=== PATIENT | male | born 1980 | race Caucasian/White ===

== ENCOUNTER 2016-07-28 10:57 | Inpatient (IN) | payer MEDICAID, OTHER ==
--- NOTE | 2016-07-28 11:53 | ED ---
Psych HPI - General Chief Complaint: Psychiatric Symptoms Stated Complaint: Kidney pain Time Seen by Provider: 07/28/16 11:35 Source: patient, RN notes reviewed Mode of arrival: ambulatory - History of Present Illness Initial Comments: Is a 35-year-old male who apparently was brought to the emergency department and states he does not know how he got here. She does not be able sleep for the last several days he does admit to taking for 2 mg Xanax this morning also to 800 mg Motrin. He has been apparently diagnosis and kidney problems. He does state he has been having suicidal thoughts recently apparently a girlfriend in this is around the anniversary of the occurring. He states he does not drink alcohol he has no other complaints this time she is not sure how he got here. He apparently also was recently treated for kidney stones. MD Complaint: feels depressed - Related Data Home Medications Medication Instructions Recorded Confirmed Ergocalciferol (Vitamin D2) 50,000 unit PO Q28D 04/14/16 07/28/16 [Drisdol] Ibuprofen [Motrin] 400 - 800 mg PO Q6HR PRN 07/28/16 07/28/16 Lisinopril [Zestril] 40 mg PO DAILY 07/28/16 07/28/16 amLODIPine BESYLATE [Norvasc] 10 mg PO DAILY 07/28/16 07/28/16 Previous Rx's Medication Instructions Recorded Acetaminophen Tab [Tylenol] 650 mg PO Q6HR PRN #0 tab 04/16/16 FLUoxetine HCL [PROzac] 20 mg PO DAILY #30 cap 04/16/16 Allergies Allergy/AdvReac Type Severity Reaction Status Date / Time No Known Allergies Allergy Verified 07/28/16 11:24 Review of Systems ROS Statement: Those systems with pertinent positive or pertinent negative responses have been documented in the HPI. ROS Other: All systems not noted in ROS Statement are negative. Past Medical History Past Medical History: Hypertension, Seizure Disorder Additional Past Medical History / Comment(s): childhood seizures, chronic pain to back. insomnia History of Any Multi-Drug Resistant Organisms: None Reported Past Surgical History: No Surgical Hx Reported Past Psychological History: Anxiety, Depression, PTSD Smoking Status: Current every day smoker Past Alcohol Use History: None Reported Past Drug Use History: Marijuana, Opiates, Prescription Drug Abuse - Past Family History Mother Family Medical History: No Reported History Father Additional Family Medical History / Comment(s): etoh General Exam - General Exam Comments Initial Comments: This is a well-developed well-nourished awake alert oriented times 3 male Limitations: no limitations General appearance: alert, anxious Head exam: Present: atraumatic, normocephalic, normal inspection Eye exam: Present: normal appearance, PERRL, EOMI. Absent: scleral icterus, conjunctival injection, periorbital swelling ENT exam: Present: normal exam, mucous membranes moist Neck exam: Present: normal inspection. Absent: tenderness, meningismus, lymphadenopathy Respiratory exam: Present: normal lung sounds bilaterally. Absent: respiratory distress, wheezes, rales, rhonchi, stridor Cardiovascular Exam: Present: regular rate, normal rhythm, normal heart sounds. Absent: systolic murmur, diastolic murmur, rubs, gallop, clicks GI/Abdominal exam: Present: soft, normal bowel sounds. Absent: distended, tenderness, guarding, rebound, rigid Extremities exam: Present: normal inspection, full ROM, normal capillary refill. Absent: tenderness, pedal edema, joint swelling, calf tenderness Back exam: Present: normal inspection Neurological exam: Present: alert, oriented X3, CN II-XII intact Psychiatric exam: Present: normal affect, normal mood Skin exam: Present: warm, dry, intact, normal color. Absent: rash Course Vital Signs 07/28/16 11:15 Temperature 100.1 F H Pulse Rate 103 H Respiratory 16 Rate Blood Pressure 141/76 O2 Sat by Pulse 95 Oximetry Medical Decision Making - Medical Decision Making The patient was evaluated and will be admitted for inpatient treatment. - Lab Data Result diagrams: 07/28/16 11:56 07/28/16 11:56 Lab Results 07/28/16 07/28/16 07/28/16 Range/Units 11:32 11:56 11:56 WBC 7.5 (3.8-10.6) k/uL RBC 5.07 (4.30-5.90) m/uL Hgb 14.4 (13.0-17.5) gm/dL Hct 42.5 (39.0-53.0) % MCV 83.9 (80.0-100.0) fL MCH 28.5 (25.0-35.0) pg MCHC 33.9 (31.0-37.0) g/dL RDW 13.6 (11.5-15.5) % Plt Count 308 (150-450) k/uL Neutrophils % 69 % Lymphocytes % 20 % Monocytes % 5 % Eosinophils % 1 % Basophils % 0 % Neutrophils # 5.2 (1.3-7.7) k/uL Lymphocytes # 1.5 (1.0-4.8) k/uL Monocytes # 0.4 (0-1.0) k/uL Eosinophils # 0.1 (0-0.7) k/uL Basophils # 0.0 (0-0.2) k/uL Sodium 140 (137-145) mmol/L Potassium 4.2 (3.5-5.1) mmol/L Chloride 105 (98-107) mmol/L Carbon Dioxide 24 (22-30) mmol/L Anion Gap 11 mmol/L BUN 12 (9-20) mg/dL Creatinine 0.82 (0.66-1.25) mg/dL Est GFR (MDRD) Af Amer >60 (>60 ml/min/1.73 sqM) Est GFR (MDRD) Non-Af >60 (>60 ml/min/1.73 sqM) Glucose 106 H (74-99) mg/dL Calcium 9.3 (8.4-10.2) mg/dL Total Bilirubin 1.9 H (0.2-1.3) mg/dL AST 31 (17-59) U/L ALT 35 (21-72) U/L Alkaline Phosphatase 95 (38-126) U/L Total Protein 7.2 (6.3-8.2) g/dL Albumin 4.1 (3.5-5.0) g/dL Urine Color Yellow Urine Appearance Clear (Clear) Urine pH 6.5 (5.0-8.0) Ur Specific [place] 1.032 (1.001-1.035) Urine Protein 1+ H (Negative) Urine Glucose (UA) Negative (Negative) Urine Ketones Trace H (Negative) Urine Blood Negative (Negative) Urine Nitrate Negative (Negative) Urine Bilirubin Negative (Negative) Urine Urobilinogen 4.0 (<2.0) mg/dL Ur Leukocyte Esterase Trace H (Negative) Urine RBC <1 (0-5) /hpf Urine WBC 1 (0-5) /hpf Ur Squamous Epith Cells <1 (0-4) /hpf Urine Mucus Rare H (None) /hpf Salicylates <1.0 mg/dL Urine Opiates Screen Detected H (NotDetected) Ur Oxycodone Screen Not Detected (NotDetected) Urine Methadone Screen Not Detected (NotDetected) Ur Propoxyphene Screen Not Detected (NotDetected) Acetaminophen <10.0 ug/mL Ur Barbiturates Screen Detected H (NotDetected) U Tricyclic Antidepress Detected H (NotDetected) Ur Phencyclidine Scrn Not Detected (NotDetected) Ur Amphetamines Screen Detected H (NotDetected) U Methamphetamines Scrn Not Detected (NotDetected) U Benzodiazepines Scrn Detected H (NotDetected) Urine Cocaine Screen Not Detected (NotDetected) U Marijuana (THC) Screen Detected H (NotDetected) Disposition Clinical Impression: Depression, Suicidal ideation Disposition: TRANSFER TO PSYCH HOSP/UNIT Condition: Stable
[2016-07-28 12:10] LABS: Basophils % (A) 0 %; CH 28.3; CHCM 33.9; Eosinophils # (A) 0.1 k/uL (0-0.7); Eosinophils % (A) 1 %; HCT 42.5 % (39.0-53.0); HDW 2.73; HGB 14.4 gm/dL (13.0-17.5); Luc # (Auto) 0.26; Luc % (Auto) 3; Lymphocytes # (A) 1.5 k/uL (1.0-4.8); Lymphocytes % (A) 20 %; MCH 28.5 pg (25.0-35.0); MCHC 33.9 g/dL (31.0-37.0); MCV 83.9 fL (80.0-100.0); Mean Platelet Volume 6.8; Monocytes # (A) 0.4 k/uL (0-1.0); Monocytes % (A) 5 %; Neutrophils # (A) 5.2 k/uL (1.3-7.7); Neutrophils % (A) 69 %; RBC 5.07 m/uL (4.30-5.90); RDW 13.6 % (11.5-15.5); WBC 7.5 k/uL (3.8-10.6); WBC (Perox) 7.47
[2016-07-28 12:16] LABS: Appearance,Urine Clear (Clear); Bilirubin,Urine Negative (Negative); Glucose,Urine (UA) Negative (Negative); Ketones,Urine Trace (Negative); Leukocyte Esterase,Urine Trace (Negative); Mucus,Urine Rare /hpf; Nitrite,Urine Negative (Negative); PH, Urine 6.5 (5.0-8.0); Particle Count 1558; Protein,Urine 1+ (Negative); RBC,Urine <1 /hpf (0-5); Specific Gravity,Urine 1.032 (1.001-1.035); Squamous Epithelial Cell,Urine <1 /hpf (0-4); UA Billing (MACRO vs. MICRO) MICRO; WBC,Urine 1 /hpf (0-5)
[2016-07-28 12:26] LABS: ALT 35 U/L (21-72); AST 31 U/L (17-59); Acetaminophen <10.0 ug/mL; Alkaline Phosphatase 95 U/L (38-126); Anion Gap 11 mmol/L; Blood Urea Nitrogen 12 mg/dL (9-20); Calcium 9.3 mg/dL (8.4-10.2); Carbon Dioxide 24 mmol/L (22-30); Chloride 105 mmol/L (98-107); Glucose 106 mg/dL (74-99); Non-African American GFR(MDRD) >60 (>60 ml/min/1.73 sqM); Potassium 4.2 mmol/L (3.5-5.1); Salicylate <1.0 mg/dL; Sodium 140 mmol/L (137-145); Total Bilirubin 1.9 mg/dL (0.2-1.3); Total Protein 7.2 g/dL (6.3-8.2)
[2016-07-28] MEDS ORDERED: NICOTINE 14MG/24HR PATCH TRANSDERM STA (13:05)
[2016-07-28 16:30] VITALS: TEMP 98.2
[2016-07-28] MEDS ORDERED: ZIPRASIDONE 20 MG VIAL IM PRN (16:35)
[2016-07-28] MEDS ORDERED: ACETAMINOPHEN TAB 325 MG TAB PO PRN (16:35)
[2016-07-28] MEDS ORDERED: MAGNESIUM HYDROXIDE 2,400 MG/10 ML CUP PO PRN (16:35)
[2016-07-28] MEDS ORDERED: MAG HYDROX/AL HYDROX/SIMETH 30 ML CUP PO PRN (16:35)
[2016-07-28] MEDS ORDERED: LORazepam 2 MG/ML SYRINGE IM PRN (16:39)
[2016-07-28] MEDS ORDERED: ERGOCALCIFEROL 50,000 UNIT CAP PO SCH (16:45)
[2016-07-28] MEDS ORDERED: NICOTINE 14MG/24HR PATCH TRANSDERM SCH (17:00)
[2016-07-28] MEDS: LORazepam 1 MG TAB PO PRN (17:37)
[2016-07-28] MEDS: IBUPROFEN 400 MG TAB PO PRN (17:51)
[2016-07-28] MEDS ORDERED: traZODone HCL 100 MG TAB PO SCH (21:15)
[2016-07-28] MEDS ORDERED: WATER FOR INJECTION, STERILE 10 ML IV ONE (22:37)
[2016-07-29] MEDS: IBUPROFEN 400 MG TAB PO PRN (08:22)
[2016-07-29] MEDS: LORazepam 1 MG TAB PO PRN (08:22)
[2016-07-29] MEDS ORDERED: LISINOPRIL 20 MG TAB PO SCH (09:00)
[2016-07-29] MEDS ORDERED: FLUoxetine HCL 20 MG CAP PO SCH (09:00)
[2016-07-29] MEDS ORDERED: amLODIPine 10 MG TAB PO SCH (09:00)
[2016-07-29] MEDS ORDERED: NICOTINE 14MG/24HR PATCH TRANSDERM SCH (09:00)
[2016-07-29] MEDS ORDERED: BENZOCAIN/BENZALKONM ORAL GEL 12 GM TUBE MM PRN (11:14)
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
--- NOTE | 2016-07-29 11:59 | P.DS ---
Providers Date of admission: 07/28/16 15:45 Attending physician: Rajan Sebastian MD Consults: 07/28/16 16:35 Consult Physician Routine Consulting Provider: Quirino Shine Consult Reason/Comments: Follow up H & P Do you want consulting provider notified?: Yes Primary care physician: Quirino Shine - Discharge Diagnosis(es) (1) Insomnia due to drug Current Visit: Yes Status: Acute Priority: Medium (2) Opioid use disorder, severe, dependence Current Visit: Yes Status: Chronic Priority: Medium (3) Sedative, hypnotic or anxiolytic abuse, continuous Current Visit: Yes Status: Chronic (4) Amphetamine and psychostimulant abuse, binge pattern Current Visit: Yes Status: Acute Priority: High (5) Cannabis abuse Current Visit: Yes Status: Chronic Priority: Medium (6) Substance induced mood disorder Current Visit: Yes Status: Acute Priority: Medium Hospital Course: Mr. Patrick a 35-year-old single male presented to unit voluntarily with complaints of insomnia and depression. He complained that he had been sleeping for "4 for 5 days." He "lays down" and "tosses and turns". During the daytime he felt as though he were "in a dream". On Wednesday prior to admission he states he took several Tylenol and Tylenol PM tablets in an attempt to fall asleep. He estimates that he may have taken up to 20-30 Tylenol and Tylenol PM tablets. He attributed the change in his mental state to his physician refusing to continue prescriptions for Xanax and Narco and the anniversary of the of his fiana rosa. Apparently his physician required urine drug screens and refused to continue prescriptions of Xanax and Narco when his drug screen was positive for cannabinoids. He stated that he has been using several drugs including Xanax, marijuana, morphine, hydrocodone , Ritalin and Adderall. In addition he buys Suboxone to control his use of heroin. He finds that 4 mg of Suboxone per day controls his craving for heroin. His ever on July 21 "about 4 years ago" from an intentional overdose of Xanax. He stated that he woke in the morning and found her . There was an empty bottle of Xanax next to her. She had a history of mental health and substance use problems including multiple psychiatric hospitalizations. Every July, since her , he experiences increased depression with the anniversary of her . He stated that he feels much better since he slept "8 hours" last night. He requested to be discharge and stated he has scheduled an appointment at [facility] on 07/30/2016 for outpatient mental health treatment. He denied having thoughts of or suicide. He denied feeling depressed or having significant symptoms of anxiety. He denied psychotic symptoms such as auditory or visual hallucinations, ideas reference, thought insertion, thought broadcasting or thought control. He denied prior psychiatric hospitalizations. He had met with a therapist at [facility], [place], but stopped when he started his current job. 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 He has met with the therapist at [facility] for "a couple years." He has used most drugs of abuse including marijuana, opioid pain medications, cocaine, crack, methamphetamine, heroin and sedative/hypnotics. His drugs of choice are marijuana and heroin. He began using opiate pain medications when he was approximately 30 years old. He started using heroin when "the pills became too expensive" about one year later. He injected heroin for 3-4 months then entered his first treatment program at [facility]. He last used heroin when he was last released from [facility] about one year ago. His urine drug screen on admission was positive for opiates, barbiturates, tricyclics, amphetamines, benzodiazepines and marijuana. The results of urine drug screen is consistent with his history of using oral opiate pain medications, amphetamines, benzodiazepines and marijuana. He described a social pattern of alcohol use. He has been in 3 substance abuse treatment programs all at [facility]. His last was for detox only in January 2015. As mentioned above he controls his heroin use by buying Suboxone and taking approximate 4 mg per day. He stated that that a certified provider will not prescribe him Suboxone because he continues to use marijuana and his urine drug screens are always positive. We admitted him to the psychiatric unit under care of this telegraphic typewriter repairer. We provided a biopsychosocial assessment. We restarted his outpatient medications including fluoxetine 20 mg daily, Zestril 40 mg daily, Norvasc 10 mg daily and vitamin D 2 5000 units every 28 days. We prescribed trazodone 100 mg at bedtime for sleep. On the morning after admission he reported restful sleep "the first time in a week". He denied feeling depressed or having thoughts of suicide. He understands his need for substance abuse and mental health treatment and arranged for an intake appointment at [facility] prior to his admission. He requested to be discharged to keep his outpatient mental health appointment and to return to work. Patient Condition at Discharge: Stable Plan - Discharge Summary New Discharge Prescriptions: Nicotine 14Mg/24Hr Patch [Habitrol] 1 patch TRANSDERM DAILY #14 patch traZODone HCL [Desyrel] 100 mg PO HS 30 Days Discharge Medication List Ergocalciferol (Vitamin D2) [Drisdol] 50,000 unit PO Q28D 04/14/16 [History] Acetaminophen Tab [Tylenol] 650 mg PO Q6HR PRN #0 tab 04/16/16 [Rx] FLUoxetine HCL [PROzac] 20 mg PO DAILY #30 cap 04/16/16 [Rx] Ibuprofen [Motrin] 400 - 800 mg PO Q6HR PRN 07/28/16 [History] Lisinopril [Zestril] 40 mg PO DAILY 07/28/16 [History] amLODIPine BESYLATE [Norvasc] 10 mg PO DAILY 07/28/16 [History] Nicotine 14Mg/24Hr Patch [Habitrol] 1 patch TRANSDERM DAILY #14 patch 07/29/16 [ Rx] traZODone HCL [Desyrel] 100 mg PO HS 30 Days 07/29/16 [Rx] Follow up Appointment(s)/Referral(s): [facility] [Outside] - 07/30/16 2:00 pm (Quirino Alas MD [Primary Care Provider] - 1-2 days Discharge Disposition: HOME SELF-CARE
[2016-07-29 12:52] VITALS: BP 143/90; PULSE 75; RESP 18; BMI 34.4
--- NOTE | 2016-07-29 19:09 | CONS ---
DATE OF CONSULTATION: CHIEF COMPLAINT: Major depression. HISTORY OF PRESENT ILLNESS: This 35-year-old white male was admitted with exacerbation of depression. He is brought in for acute management. REVIEW OF SYSTEMS: He has had no headaches, chest pain, shortness of breath, abdominal pain, melena, hematochezia, jaundice, hematemesis, renal disease, diabetes, etc. Past medical history, family history, and personal and social histories are unremarkable or noncontributory otherwise. ALLERGIES: He is NOT ALLERGIC TO ANY MEDICATION. It is not clear what medications he has been taking, if any. He does smoke. PHYSICAL EXAMINATION: Blood pressure is 112/72, pulse 68, respiratory rate 16. He is afebrile. In general he appeared to be well-developed, well-nourished, in no acute distress. He was somewhat disheveled. Head, ears, eyes, nose, mouth and throat were normal. Neck veins were not distended. Chest is clear. Cardiac exam is normal. Abdomen is soft, nontender. Extremities are normal. IMPRESSION: 1. Major depression. 2. Nicotine abuse. RECOMMENDATIONS: None.
== END 2016-07-29 14:25 | disposition home or self-care (01) | DRG 881 ==
LOC: EC 10:57 → 3MHU 15:45
PROVIDERS: ADMIT Psychiatry & Neurology Psychiatry; ATTEND Psychiatry & Neurology Psychiatry
DX: F32.9 Major depressive disorder, single episode, unspecified (principal); R45.851 Suicidal ideations; F11.20 Opioid dependence, uncomplicated; F19.182 Other psychoactive substance abuse with psychoactive substance-induced sleep disorder; G40.909 Epilepsy, unspecified, not intractable, without status epilepticus; I10 Essential (primary) hypertension; F13.10 Sedative, hypnotic or anxiolytic abuse, uncomplicated; F12.10 Cannabis abuse, uncomplicated; F17.200 Nicotine dependence, unspecified, uncomplicated; F43.10 Post-traumatic stress disorder, unspecified; F41.9 Anxiety disorder, unspecified; G89.29 Other chronic pain; M54.9 Dorsalgia, unspecified; Z79.899 Other long term (current) drug therapy; Z62.810 Personal history of physical and sexual abuse in childhood; Z62.811 Personal history of psychological abuse in childhood
CPT/HCPCS: 36415; 80053; 80306; 81001; 82075; 83520; 84443; 85025; 99285

== ENCOUNTER 2016-10-04 11:20 | Emergency (ER) | payer OTHER ==
[2016-10-04] MEDS ORDERED: MORPHINE SULFATE 4 MG/ML SYRINGE IV STA (12:17)
[2016-10-04] MEDS ORDERED: SODIUM CHLORIDE 0.9% 1,000 ML IV STA (12:17)
--- NOTE | 2016-10-04 12:26 | ED ---
General Adult HPI - General Chief complaint: Back Pain/Injury Stated complaint: kidney stone Time Seen by Provider: 10/04/16 12:17 Source: patient, RN notes reviewed, old records reviewed Mode of arrival: ambulatory Limitations: no limitations - History of Present Illness Initial comments: This is a 36-year-old male with urinary for evaluation retrace patient presents for evaluation of kidney pain. Patient states he has severe kidney pain both sides. History of kidney failure unknown, dehydration, history of kidney stones. Patient has not decreased urination, increased worsening color of his urine. No spell. No fevers. No abdominal pain. No nausea or vomiting. No modifying factors or symptoms - Related Data Home Medications Medication Instructions Recorded Confirmed No Known Home Medications [No 10/03/16 10/04/16 Known Home Medications] Allergies Allergy/AdvReac Type Severity Reaction Status Date / Time No Known Allergies Allergy Verified 10/04/16 12:57 Review of Systems ROS Statement: Those systems with pertinent positive or pertinent negative responses have been documented in the HPI. ROS Other: All systems not noted in ROS Statement are negative. Past Medical History Past Medical History: Hypertension, Seizure Disorder Additional Past Medical History / Comment(s): childhood seizures, chronic pain to back. insomnia. Kidney stones History of Any Multi-Drug Resistant Organisms: None Reported Past Surgical History: No Surgical Hx Reported Past Anesthesia/Blood Transfusion Reactions: No Reported Reaction Past Psychological History: Anxiety, Depression, PTSD Smoking Status: Current every day smoker Past Alcohol Use History: None Reported Past Drug Use History: Marijuana, Opiates - Past Family History Mother Family Medical History: No Reported History Father Additional Family Medical History / Comment(s): etoh General Exam Limitations: no limitations General appearance: alert, in no apparent distress Head exam: Present: atraumatic, normocephalic, normal inspection Eye exam: Present: normal appearance, PERRL, EOMI. Absent: scleral icterus, conjunctival injection, periorbital swelling ENT exam: Present: normal exam, mucous membranes moist Neck exam: Present: normal inspection. Absent: tenderness, meningismus, lymphadenopathy Respiratory exam: Present: normal lung sounds bilaterally. Absent: respiratory distress, wheezes, rales, rhonchi, stridor Cardiovascular Exam: Present: regular rate, normal rhythm, normal heart sounds. Absent: systolic murmur, diastolic murmur, rubs, gallop, clicks GI/Abdominal exam: Present: soft, normal bowel sounds. Absent: distended, tenderness, guarding, rebound, rigid Extremities exam: Present: normal inspection, full ROM, normal capillary refill. Absent: tenderness, pedal edema, joint swelling, calf tenderness Back exam: Present: normal inspection Neurological exam: Present: alert, oriented X3, CN II-XII intact Psychiatric exam: Present: normal affect, normal mood Skin exam: Present: warm, dry, intact, normal color. Absent: rash Course Vital Signs 10/04/16 10/04/16 11:25 13:21 Temperature 98.1 F Pulse Rate 72 67 Respiratory 20 18 Rate Blood Pressure 133/86 132/84 O2 Sat by Pulse 98 96 Oximetry - Reevaluation(s) Reevaluation #1: 10/04/16 14:42 Pains controlled at this time Medical Decision Making - Medical Decision Making 36 male to the the ER for evaluation of his vision was essentially for evaluation of back pain. Patient has severe back and flank pain. At this time pain is improved, lab work is normal the cat scan, patient can be discharged home - Lab Data Result diagrams: 10/04/16 13:19 10/04/16 13:19 Lab Results 10/04/16 10/04/16 10/04/16 Range/Units 13:19 13:19 13:19 WBC 7.3 (3.8-10.6) k/uL RBC 5.54 (4.30-5.90) m/uL Hgb 15.3 (13.0-17.5) gm/dL Hct 47.1 (39.0-53.0) % MCV 85.0 (80.0-100.0) fL MCH 27.7 (25.0-35.0) pg MCHC 32.6 (31.0-37.0) g/dL RDW 13.8 (11.5-15.5) % Plt Count 267 (150-450) k/uL Neutrophils % 60 % Lymphocytes % 29 % Monocytes % 5 % Eosinophils % 2 % Basophils % 0 % Neutrophils # 4.4 (1.3-7.7) k/uL Lymphocytes # 2.1 (1.0-4.8) k/uL Monocytes # 0.4 (0-1.0) k/uL Eosinophils # 0.2 (0-0.7) k/uL Basophils # 0.0 (0-0.2) k/uL Sodium 141 (137-145) mmol/L Potassium 4.3 (3.5-5.1) mmol/L Chloride 107 (98-107) mmol/L Carbon Dioxide 26 (22-30) mmol/L Anion Gap 8 mmol/L BUN 17 (9-20) mg/dL Creatinine 0.82 (0.66-1.25) mg/dL Est GFR (MDRD) Af Amer >60 (>60 ml/min/1.73 sqM) Est GFR (MDRD) Non-Af >60 (>60 ml/min/1.73 sqM) Glucose 93 (74-99) mg/dL Calcium 9.0 (8.4-10.2) mg/dL Phosphorus 2.8 (2.5-4.5) mg/dL Magnesium 1.8 (1.6-2.3) mg/dL Total Bilirubin 0.6 (0.2-1.3) mg/dL AST 32 (17-59) U/L ALT 38 (21-72) U/L Alkaline Phosphatase 72 (38-126) U/L Total Protein 7.1 (6.3-8.2) g/dL Albumin 4.3 (3.5-5.0) g/dL Lipase 258 (23-300) U/L Urine Color Yellow Urine Appearance Clear (Clear) Urine pH 6.0 (5.0-8.0) Ur Specific Randolph 1.019 (1.001-1.035) Urine Protein Negative (Negative) Urine Glucose (UA) Negative (Negative) Urine Ketones Negative (Negative) Urine Blood Negative (Negative) Urine Nitrite Negative (Negative) Urine Bilirubin Negative (Negative) Urine Urobilinogen <2.0 (<2.0) mg/dL Ur Leukocyte Esterase Negative (Negative) - Radiology Data Radiology results: report reviewed (CT of abdomen and pelvis is negative for acute disease), image reviewed Disposition Clinical Impression: Mid back pain, Thoracic back pain Disposition: HOME SELF-CARE Condition: Good Instructions: Acute Low Back Pain (ED), Chronic Back Pain (ED) Referrals: None,Stated [Primary Care Provider] - 1-2 days
[2016-10-04 14:15] LABS: Basophils % (A) 0 %; CH 28.5; CHCM 33.6; Eosinophils # (A) 0.2 k/uL (0-0.7); Eosinophils % (A) 2 %; HCT 47.1 % (39.0-53.0); HDW 2.44; HGB 15.3 gm/dL (13.0-17.5); Luc # (Auto) 0.21; Luc % (Auto) 3; Lymphocytes # (A) 2.1 k/uL (1.0-4.8); Lymphocytes % (A) 29 %; MCH 27.7 pg (25.0-35.0); MCHC 32.6 g/dL (31.0-37.0); Mean Platelet Volume 6.6; Monocytes # (A) 0.4 k/uL (0-1.0); Monocytes % (A) 5 %; Neutrophils # (A) 4.4 k/uL (1.3-7.7); Neutrophils % (A) 60 %; RBC 5.54 m/uL (4.30-5.90); RDW 13.8 % (11.5-15.5); WBC 7.3 k/uL (3.8-10.6); WBC (Perox) 7.33
[2016-10-04 14:18] LABS: Appearance,Urine Clear (Clear); Bilirubin,Urine Negative (Negative); Glucose,Urine (UA) Negative (Negative); Ketones,Urine Negative (Negative); Leukocyte Esterase,Urine Negative (Negative); Nitrite,Urine Negative (Negative); Protein,Urine Negative (Negative); Specific Gravity,Urine 1.019 (1.001-1.035); UA Billing (MACRO vs. MICRO) CHEM; Urobilinogen,Urine <2.0 mg/dL (<2.0)
[2016-10-04 14:27] LABS: ALT 38 U/L (21-72); AST 32 U/L (17-59); Alkaline Phosphatase 72 U/L (38-126); Anion Gap 8 mmol/L; Blood Urea Nitrogen 17 mg/dL (9-20); Carbon Dioxide 26 mmol/L (22-30); Chloride 107 mmol/L (98-107); Glucose 93 mg/dL (74-99); Magnesium 1.8 mg/dL (1.6-2.3); Non-African American GFR(MDRD) >60 (>60 ml/min/1.73 sqM); Phosphorous 2.8 mg/dL (2.5-4.5); Potassium 4.3 mmol/L (3.5-5.1); Sodium 141 mmol/L (137-145); Total Bilirubin 0.6 mg/dL (0.2-1.3); Total Protein 7.1 g/dL (6.3-8.2)
--- NOTE | 2016-10-04 14:28 | CT ---
EXAMINATION TYPE: CT abdomen pelvis wo con DATE OF EXAM: 10/04/2016 1:41 PM COMPARISON: Previous CT 14 April 2016 HISTORY: Bilateral flank pain with urination changes CT DLP: 1212 mGycm Automated exposure control for dose reduction was used. TECHNIQUE: Helical acquisition of images from the lung bases through the pelvis. FINDINGS: Lack of intravenous contrast may compromise sensitivity of the exam. LUNG BASES: Minimal dependent atelectatic changes are present AORTA: No significant abnormality is appreciated. LIVER/GB: Stable PANCREAS: No significant abnormality is seen. SPLEEN: No significant abnormality is seen. ADRENALS: No significant abnormality is seen. KIDNEYS: Stable, bilateral cortical cysts are present, there is no hydronephrosis or renal calculi, n o ureteral calculus REPRODUCTIVE ORGANS: Prostatic calcifications are present URINARY BLADDER: No significant abnormality is seen. BOWEL: Diverticular changes associated with the sigmoid colon. The appendix shows some luminal high attenuation but no inflammatory change and is not distended. FREE AIR: No Free Air is visible. ASCITES: None visible. PELVIC ADENOPATHY: None visualized. RETROPERITONEAL ADENOPATHY: No Retroperitoneal Adenopathy visible. OSSEOUS STRUCTURES: No significant abnormality is seen. IMPRESSION: NO ABNORMALITY EVIDENT TO ACCOUNT FOR PATIENT'S SYMPTOMS. DIVERTICULOSIS. NONCONTRAST EXAM.
[2016-10-04 14:49] LABS: Creatine Kinase MB 0.7 ng/mL (0.0-2.4)
[2016-10-04 15:07] VITALS: BP 133/78; PULSE 89; RESP 20; TEMP 98
== END 2016-10-04 15:07 | disposition home or self-care (01) ==
LOC: EC 11:20
DX: M54.6 Pain in thoracic spine (principal); R10.9 Unspecified abdominal pain; M54.9 Dorsalgia, unspecified; F17.200 Nicotine dependence, unspecified, uncomplicated
CPT/HCPCS: 36415; 80053; 82550; 82553; 83690; 83735; 84100; 85025; 81003; 87086; 74176; 99284; 96374; 96361 ×2; J2270

== ENCOUNTER 2018-12-31 00:58 | Emergency (ER) | payer OTHER ==
[2018-12-31 01:21] VITALS: BP 120/73; PULSE 92; RESP 18; TEMP 98
--- NOTE | 2018-12-31 01:50 | ED ---
Skin/Abscess/FB HPI - General Chief complaint: Skin/Abscess/Foreign Body Stated complaint: Poss bug bite Time Seen by Provider: 12/31/18 01:24 Source: patient Mode of arrival: ambulatory Limitations: no limitations - History of Present Illness Initial comments: This patient is a 38-year-old man who presents to be evaluated for what he suspects are number of insect or spider bites. The patient states she had been doing some cleaning and a basement and thinks she had disturbed a number of spiders. He states on the following day he noted some red areas to he is neck and chin areas. He states that there appears to be a little bit of swelling. He has not had any other symptoms, including no fever or chills, no palpitations. No drainage from the areas. MD complaint: insect bite/sting Onset/Timin -: days(s) Location: face, neck Improves with: none Worsens with: none Associated symptoms: denies other symptoms - Related Data Previous Rx's Medication Instructions Recorded Sulfamethox-Tmp 800-160Mg [Bactrim 1 each PO Q12HR #14 tab 12/31/18 Ds] Allergies Allergy/AdvReac Type Severity Reaction Status Date / Time No Known Allergies Allergy Verified 12/31/18 01:21 Review of Systems ROS Statement: Those systems with pertinent positive or pertinent negative responses have been documented in the HPI. ROS Other: All systems not noted in ROS Statement are negative. Constitutional: Denies: fever, chills ENT: Denies: throat pain Skin: Reports: as per HPI, lesions Past Medical History Past Medical History: Hypertension, Seizure Disorder Additional Past Medical History / Comment(s): childhood seizures, chronic pain to back. insomnia. Kidney stones History of Any Multi-Drug Resistant Organisms: None Reported Past Surgical History: No Surgical Hx Reported Past Anesthesia/Blood Transfusion Reactions: No Reported Reaction Past Psychological History: Anxiety, Depression, PTSD Smoking Status: Current every day smoker Past Alcohol Use History: Occasional Past Drug Use History: Marijuana, Opiates - Past Family History Mother Family Medical History: No Reported History Father Additional Family Medical History / Comment(s): etoh General Exam Limitations: no limitations General appearance: alert, in no apparent distress Head exam: Present: atraumatic, normocephalic Eye exam: Present: normal appearance. Absent: scleral icterus, conjunctival injection Skin exam: Present: warm, dry, intact, normal color, other (The patient does have approximately 4 areas of some folliculitis to the chin, the left side of the face near the hairline, and also to the base of the left neck. There is no fluctuance. No evident abscess at this point.) Course Vital Signs 12/31/18 01:18 Temperature 98 F Pulse Rate 92 Respiratory 18 Rate Blood Pressure 120/73 O2 Sat by Pulse 100 Oximetry Medical Decision Making - Medical Decision Making Patient's 38-year-old man presenting with some folliculitis. I discussed appropriate further care and follow-up, including warm compresses and topical's. I did provide prescription for Bactrim which she is to start should he feel that any of the spots develop any depth or should he started having fever or other systemic symptoms. Disposition Clinical Impression: Folliculitis Disposition: HOME SELF-CARE Condition: Good Instructions (If sedation given, give patient instructions): Folliculitis (ED) Prescriptions: Sulfamethox-Tmp 800-160Mg [Bactrim Ds] 1 each PO Q12HR #14 tab Is patient prescribed a controlled substance at d/c from ED?: No Referrals: None,Stated [Primary Care Provider] - 1-2 days
[2018-12-31] MEDS ORDERED: SULFAMETHOX-TMP 800-160MG 1 EACH TAB PO STA (01:53)
== END 2018-12-31 02:06 | disposition home or self-care (01) ==
LOC: EC 00:58
DX: L73.9 Follicular disorder, unspecified (principal); F17.200 Nicotine dependence, unspecified, uncomplicated
CPT/HCPCS: 99282